=== PATIENT | male | born 1975 | race Caucasian/White ===

== ENCOUNTER 2020-04-23 15:02 | Emergency (ER) | payer SELFPAY ==
[2020-04-23 15:10] VITALS: BMI 30.1
[2020-04-23 15:16] VITALS: BP 134/72; PULSE 63; RESP 16; TEMP 36.8; O2SAT 97
--- NOTE | 2020-04-23 15:26 | XR_ITS ---
WS: [id number] XR lumbar spine 2-3V* [id number] REASON FOR EXAM: back pain FINDINGS: Examination is 3 views lumbar spine. [place] 5 functional lumbar vertebra seen. The disc spaces and vertebral bodies are normal. The lamina, pedicles, transverse processes, and spinous processes are all seen in good alignment. The lumbosacral angle was normal. XR/XR lumbar spine 2-3V* [id number] IMPRESSION: Normal lumbar spine series
[2020-04-23 15:29] VITALS: BP 131/81; PULSE 65; RESP 16; O2SAT 98
[2020-04-23] MEDS: ketorolac 30 mg/mL INJ IM (15:32)
--- NOTE | 2020-04-23 15:33 | W.ED.BACK ---
HPI - Back Pain/Injury General: Chief Complaint: Back Pain/Injury Stated Complaint: BACK PAIN Time Seen by Provider: 04/23/20 15:19 History of Present Illness: HPI Narrative: This patient is a 44-year-old male presenting with back pain. He reports an episode for 5 years ago that was similar to this. At that time he was told that 2 discs had torn in the gel he had come out of them. He did not require surgery but was told that in the future he might. He has had some back pain off and on since then but on Monday he said he twisted the wrong way and has been having severe back pain since then. He said he is unable to get comfortable at night and is having trouble sleeping. He came in today because it has not gotten better with time. He has not taken any ibuprofen or Tylenol. He does have a history of IV drug use but says he has not used in over a year. He denies fevers, chills, night sweats, weight loss. He denies any prescription medications. He reports a history of seizures but does not take anything for it. He said it is been so long since he had when he can even remember when it was. He denies any other medical history. He denies any difficulty with urination or defecation. He has no numbness or tingling in his legs. The pain does not radiate anywhere and stays in the center of his low back MD elicited complaint: back pain Pertinent past history: prior back pain and IV drug use Timing: constant Quality: sharp Location: lumbar spine Radiation: none Exacerbating factors: movement and walking Relieving factors: none Context: turning/twisting Associated symptoms: Reports no associated symptoms; Deny abdominal pain, chills, change in bowel habits, difficulty walking, dysuria, fatigue, fecal incontinence, fever(s) or weakness Review of Systems General: Reports: 10 or more systems reviewed and unremarkable except in HPI and below Const: Denies: fever(s), chills or fatigue Eyes: Denies: change in vision ENMT: Denies: odynophagia Card: Denies: chest pain or swelling of feet/ankles Resp: Denies: dyspnea, productive cough or non-productive cough GI: Denies: abdominal pain, fecal incontinence or change in bowel habits : Denies: dysuria Musc: Denies: neck pain Skin/Breast: Denies: rash Neuro: Denies: difficulty walking Billy/Lymph: Denies: easy bruising or easy bleeding PFSH ED PFSH: Social History Smoking and tobacco status: current every day smoker Physical Exam Const: COMMON NORMALS: no acute distress, patient oriented x3, no limitations and alert GENERAL APPEARANCE: cooperative and comfortable HENMT: HEAD & SCALP: normal to inspection FACE & SINUS: normal facial exam Eye: GENERAL EYE: appearance normal, both eyes and all related structures Neck/C-Spine: COMMON NORMALS: supple, no meningeal signs and no JVD Chest: COMMONS NORMALS: normal inspection of the chest Resp: COMMON NORMALS: normal respiratory effort, No use of accessory muscles and clear to auscultation bilaterally AUSCULTATION: clear to auscultation bilaterally Cardio: COMMON NORMALS: no JVD, regular rate, regular rhythm and No murmurs present (Cardio) RATE: regular rate RHYTHM: regular rhythm GI: COMMON NORMALS: Normal to inspection, nondistended, normoactive bowel sounds present, Soft to palpation and non-tender INSPECTION: Yes normal to inspection AUSCULTATION: Yes normoactive bowel sounds PALPATION: Yes Soft to palpation Back/Pelvis: COMMON NORMALS: thoracic and lumbar spine normal to inspection LUMBAR SPINE/LOWER BACK: Yes ROM limited, Yes pain with ROM, No lumbar spinal tenderness (Indicates pain in the midline around L4-5 but I cannot really reproduce the pain with palpation), No paraspinal muscle tenderness, No paraspinal muscle spasm and No mass present Extremity: COMMON NORMALS: normal to inspection Neuro: COMMON NORMALS: patient oriented x3, moves all extremities, no focal motor deficits and no sensory deficits noted SENSORIUM/ORIENTATION: Yes alert MENINGEAL SIGNS: Yes no meningeal signs Psych: COMMON NORMALS: mental status grossly normal, cooperative and normal affect Skin: COMMON NORMALS: no rashes or lesions noted and turgor normal GENERAL SKIN EXAM: no rashes or lesions noted and turgor normal Course ED course: Patient was medicated for pain and had some improvement. He was given prescription for pain, muscle relaxer, anti-inflammatory. He has a primary care for follow-up. He does have a history of IV drug use but not in over a year. He has no other signs to suggest discitis or anything of that sort. We discussed stretching and exercises for back pain. He told me that he could barely turn over in bed, how did I expect that he would be able to do any sort of stretching. We discussed further how this was to be done gradually as his pain improved. He was able to ambulate out of the department. Vital Signs: Vital signs: Vital Signs Temperature 98.2 F 04/23/20 15:16 Pulse Rate 58 L 04/23/20 17:36 Respiratory Rate 16 04/23/20 17:36 Blood Pressure 111/57 04/23/20 17:36 Pulse Oximetry 98 04/23/20 17:36 MDM - Back Pain/Injury MDM Narrative: Medical decision making narrative: Back pain with no neurologic findings. No radiation. Plain x-rays were done to rule out fracture, metastatic lesion, malalignment. These were negative. Pain medications were given in the ED. Patient will follow up with primary care if not improving. We discussed return precautions. Discharge Plan Discharge Patient Disposition: Home, Self-Care Clinical Impression: Strain of lumbar region Qualifiers: Encounter type: initial encounter Qualified Code(s): S39.012A - Strain of muscle, fascia and tendon of lower back, initial encounter Condition: Stable Prescriptions: New hydrocodone-acetaminophen 5-325 mg tablet 1 tab PO Q6H PRN (Reason: pain) Qty: 10 RF: 0 tizanidine 4 mg tablet 4 mg PO Q8H PRN (Reason: muscle spasticity) Qty: 10 RF: 0 naproxen 500 mg tablet 500 mg PO BID Qty: 10 RF: 0 Discharge Orders: Discharge Order (Routine); Ordered 04/23/20 Ordered By: Randa Yusuf Referrals: Tami Cheng DO [Primary Care Provider] - Discharge Diet: Usual diet Discharge Activity: Resume usual activity Patient Instructions: Acute Low Back Pain (ED) Activity Restrictions/Additional Instructions: Keep moving - light activity is good for back pain. It is important to keep your muscles active and loose. Return to the ED if fever, worsening pain, difficulty with urinating or moving your bowels, or any other new or worse symptoms. Discharge Date/Time: 04/23/20 17:38 Coding Level of Care Code ED Classroom Instructional Aide for Doni Fwcristine Exam Comprehensive
[2020-04-23 16:40] VITALS: BP 127/76; PULSE 56; RESP 18; O2SAT 99
[2020-04-23] MEDS: HYDROcodone-acetaminophen 5-325 mg Tablet 1 TAB PO (17:35)
[2020-04-23 17:36] VITALS: BP 111/57; PULSE 58; RESP 16; O2SAT 98
== END 2020-04-23 17:38 | disposition home or self-care (01) ==
PROVIDERS: Emergency Provider Emergency Medicine; Family Provider Family Medicine; PCP Family Medicine
DX: S39.012A Strain of muscle, fascia and tendon of lower back, initial encounter (principal); X50.1XXA Overexertion from prolonged static or awkward postures, initial encounter; F17.210 Nicotine dependence, cigarettes, uncomplicated
CPT/HCPCS: 12345; 72100; 96372; 99282; 99283; J1885

== ENCOUNTER 2021-06-25 10:58 | Emergency (ER) | payer MEDICARE, SELFPAY ==
[2021-06-25 12:05] VITALS: BP 124/76; PULSE 68; RESP 18; TEMP 36.9; O2SAT 100; BMI 25.1
[2021-06-25 12:42] LABS: SARS Covid-2 Antigen Positive (Negative)
--- NOTE | 2021-06-25 13:08 | W.ED.COVID ---
HPI - COVID General: Chief Complaint: COVID symptoms Stated Complaint: aching, dizzy, h/a Time Seen by Provider: 06/25/21 12:57 Source: patient Mode of arrival: ambulatory Limitations: no limitations Triage information: Has fever, cough or shortness of breath. Exposure to COVID + person last 14 days History of Present Illness: MD complaint: reported COVID exposure Prior covid testing: no COVID 19 common symptoms: positive fever(s), chills, fatigue, body aches, headache(s) and throat pain; negative dyspnea COVID 19 other sytmptoms: negative chest pressure, chest pain, pleuritic pain, requiring oxygen, requiring more oxygen, respiratory distress, cyanosis, lethargy, confusion, new neurological complaints or other concerning symptoms Onset (ago): day(s) (2 days) Severity: mild Pertinent comorbid conditions: other (Epilepsy, hepatitis C) Treatment prior to arrival: none COVID Results: SARS-CoV-2 Antigen (Rapid) Positive (Negative) H 06/25/21 12:14 06/25/21 Review of Systems General: Reports: 10 or more systems reviewed and unremarkable except in HPI and below Const: Reports: fever(s), chills, body aches and fatigue ENMT: Reports: throat pain Card: Denies: chest pain Resp: Denies: dyspnea Neuro: Reports: headache(s); Denies: confusion PFSH ED PFSH: Social History Smoking and tobacco status: current every day smoker Physical Exam Const: COMMON NORMALS: no acute distress GENERAL APPEARANCE: cooperative, comfortable and well kempt HENMT: COMMON NORMALS: normocephalic and atraumatic HEAD & SCALP: normal to inspection, normocephalic and atraumatic MOUTH: Normal oral and palatal mucosa present TEETH & GINGIVA: Yes abnormal tooth and associated gingiva THROAT: posterior oropharynx normal Eye: COMMON NORMALS: Equal, round and reactive pupils present GENERAL EYE: appearance normal, both eyes and all related structures PUPIL: Yes Equal, round and reactive pupils present Neck/C-Spine: COMMON NORMALS: full ROM, no lymphadenopathy and no JVD Lymph: LYMPHATIC: no lymphadenopathy noted Resp: COMMON NORMALS: normal respiratory effort, No retractions, No use of accessory muscles and clear to auscultation bilaterally EFFORT & INSPECTION: Yes able to speak in complete sentences, Yes symmetric chest movement, No tachypneic, No respiratory distress and No labored AUSCULTATION: clear to auscultation bilaterally Cardio: COMMON NORMALS: no JVD, regular rate, S1 normal heart sound present and S2 normal heart sound present RATE: regular rate HEART SOUNDS: S1 normal heart sound present and S2 normal heart sound present GI: COMMON NORMALS: Normal to inspection, nondistended, normoactive bowel sounds present Extremity: GENERAL: Yes normal exam except as noted Psych: APPEARANCE: Yes well kempt Skin: COMMON NORMALS: no rashes or lesions noted GENERAL SKIN EXAM: no rashes or lesions noted Course Vital Signs: Vital signs: Vital Signs Temperature 98.5 F 06/25/21 12:05 Pulse Rate 68 06/25/21 12:05 Respiratory Rate 18 06/25/21 12:05 Blood Pressure 124/76 06/25/21 12:05 Pulse Oximetry 100 06/25/21 12:05 MDM - COVID MDM Narrative: Medical decision making narrative: Symptom onset 48 hours prior. No dyspnea or cough present at this time lungs clear to auscultation. Most bothersome symptom is headaches and body aches, intermittent fever. Discussed monoclonal antibodies and their use risk and benefits explained no further alternatives at this time to monoclonal antibody treatment patient would like to proceed with getting infusion today. Patient considered stable and a good candidate for monoclonal antibody infusion. Medical Records: Attestation: I reviewed the patient's medical records. Lab Data: Attestation: I reviewed the patient's lab results. Labs: Lab Results 06/25/21 Range/Units 12:14 SARS-CoV-2 Ag (Rap id) Positive H (Negative) COVID Results: SARS-CoV-2 Antigen (Rapid) Positive (Negative) H 06/25/21 12:14 06/25/21 Monoclonal Antibody - ED Inclusion/Exclusion Criteria age >/= 12 years, weight >/= 40kg /88lbs, symptom onset less than 10 days ago and + direct Sars-Cov-2 test less than 7-10 days ago neurodevelopmental diease not requiring hospitalization, not requiring oxygen (if not chronically on oxygen) and no increase oxygen requirement (if chronically on oxygen) Patient education patient/family/caregiver received/reviewed fact sheet, Emergency Use Authorization/unapproved drug status discussed with patient/family/caregiver, alternatives to this treatment discussed with patient/family/caregiver, risks and benefits of medication reviewed with patient/family/caregiver, patient/family/caregiver given opportunity for questions, which were answered and patient consents to receiving Monoclonal Antibody Treatment Plan for treatment Meets criteria for Monoclonal Antibody infusion Date of symptom(s) onset: 06/23/21 Where are the positive COVID test results, if positive?: Resulted in [facility] Ordering Monoclonal Antibody infusion for today and Monoclonal antibody information given Discharge Plan Discharge Patient Disposition: Home Clinical Impression: COVID-19 Condition: Stable Prescriptions: New naproxen 500 mg tablet 500 mg PO BID PRN (Reason: pain) Qty: 30 RF: 0 No Action hydrocodone-acetaminophen 5-325 mg tablet 1 tab PO Q6H PRN (Reason: pain) Qty: 10 RF: 0 tizanidine 4 mg tablet 4 mg PO Q8H PRN (Reason: muscle spasticity) Qty: 10 RF: 0 naproxen 500 mg tablet 500 mg PO BID Qty: 10 RF: 0 Discharge Orders: Discharge ED (Routine); Ordered 06/25/21 Ordered By: Cecilia Marino Other Ambulatory Orders: Request for MCA (Routine) Timeframe: 1 Day Facility: [facility] - Location: [facility] Ordered By: Cecilia Marino Discharge Diet: Usual diet Discharge Activity: Resume usual activity Patient Instructions: Opioid Safety Coding Level of Care Code ED Vending Machine Collector for Doni Fwd Exam Comprehensive
--- NOTE | 2021-06-25 13:58 | PC.NURSE ---
Patient ambulated down to infusion center at this time. Patient tolerated well.
== END 2021-06-25 13:50 | disposition home or self-care (01) ==
PROVIDERS: Physician Assistant; Emergency Provider Nurse Practitioner Family
DX: U07.1 COVID-19 (principal); F17.210 Nicotine dependence, cigarettes, uncomplicated
CPT/HCPCS: 87426; 87635; 96365; 99282

== ENCOUNTER 2021-06-25 14:03 | Outpatient (CLI) | payer MEDICARE, SELFPAY ==
[2021-06-25 14:12] VITALS: BP 121/79; PULSE 65; RESP 14; TEMP 37.5; O2SAT 99
[2021-06-25 15:10] VITALS: BP 119/75; PULSE 72; RESP 16; O2SAT 98
[2021-06-25 16:00] VITALS: BP 115/62; PULSE 67; RESP 16; TEMP 37.7; O2SAT 97
== END 2021-06-25 14:04 | disposition home or self-care (01) ==
PROVIDERS: Visit Provider Nurse Practitioner Family
DX: U07.1 COVID-19 (principal)
CPT/HCPCS: 96365